=== PATIENT | male | born 1975 | race Caucasian/White ===

== ENCOUNTER 2020-10-11 13:47 | Emergency (ER) | payer OTHER, SELFPAY ==
--- NOTE | ~2020-10-11 | XR_ITS ---
EXAMINATION: XR foot RT min 3V DATE: 10/11/2020 14:14 INDICATION: Blunt trauma to the right foot TECHNIQUE: Dorsoplantar, two oblique and lateral views of the right foot were obtained. COMPARISON: None. FINDINGS: Bone alignment is normal. No fracture. Mild osteoarthritis at the first metatarsophalangeal joint. Penelope int spaces are otherwise relatively preserved. Small Achilles calcaneal spurs. Prominent soft tissue swelling over the dorsum of the forefoot. IMPRESSION: 1. No acute osseous abnormality. Reviewed, dictated and finalized at location A.
[2020-10-11 13:54] VITALS: BP 159/103; PULSE 70; RESP 20; TEMP 36.7; O2SAT 100
--- NOTE | 2020-10-11 14:07 | ED.LOWEXIN ---
HPI - Extremity Injury (Lower) General Chief Complaint: Extremity Injury, Lower Stated Complaint: rt foot inj Source: patient Mode of arrival: ambulatory Limitations: no limitations History of Present Illness HPI Narrative: Patient is a 45 year old male who presents with right foot injury. Patient reports wooden bed frame fell on foot last evening. He reports bruising, swelling and pain with ambulation. Denies numbness or tingling. Denies other injuries. He reports taking otc medications for pain with limited relief. Related Data Home Medications Medication Instructions Recorded Confirmed No Home Medications 10/11/20 10/11/20 Allergies Allergy/AdvReac Type Severity Reaction Status Date / Time Penicillins Allergy Rash Verified 10/11/20 14:30 Review of Systems Review of Systems: Narrative: CONSTITUTIONAL: Denies fever, chills, or sweats. EYES: Denies visual changes, redness, or discharge. ENT: Denies rhinorrhea, congestion, sore throat, or otalgia. CARDIOVASCULAR: Denies chest pain, palpitations, or edema. RESPIRATORY: Denies cough or dyspnea. GASTROINTESTINAL: Denies abdominal pain, nausea, vomiting, or diarrhea. GENITOURINARY: Denies dysuria or hematuria. SKIN: Denies rash or itching. MUSCULOSKELETAL: Right foot pain NEUROLOGIC: Denies headache, numbness, dizziness, or weakness. PSYCHIATRIC: Denies anxiety or depression. [facility] Social History Social History (Updated 10/11/20 @ 14:13 by DEBI Alvarez) Smoking status: Never smoker Alcohol intake: current Alcohol use details: occasional Substance use: never Living arrangements: with family Occupation/Education: occupation Comments At the time of signature, I have reviewed and agree with nursing past medical, surgical, social, and family history unless otherwise noted. Please see nursing chart for further information. There is no relevant family history pertinent to the presenting complaint. Exam Narrative: Exam Narrative: GENERAL: Well-appearing, well-nourished, and in no acute distress. HEAD: Normocephalic, atraumatic. EYES: EOMI. No redness or drainage. Conjunctiva are normal. ENT: Mucous membranes pink and moist. CHEST: No respiratory distress. Clear to auscultation. HEART: Regular rate and rhythm. No murmur appreciated. Normal peripheral pulses. EXTREMITIES: Edema and ecchymosis to dorsal right foot, good capillary refill, distal sensation intact SKIN: Warm, dry, no rash. NEURO: No focal deficits. Alert and oriented x3. Gait steady. PSYCH: Normal affect. No signs of depression or anxiety. Course Vital Signs Vital signs: Vital Signs Temperature 36.7 C 10/11/20 13:54 Pulse Rate 70 10/11/20 13:54 Respiratory Rate 20 10/11/20 13:54 Blood Pressure 159/103 H 10/11/20 13:54 Pulse Oximetry 100 10/11/20 13:54 Temperature 36.7 C 10/11/20 13:54 Pulse Rate 70 10/11/20 13:54 Respiratory Rate 20 10/11/20 13:54 Blood Pressure 159/103 H 10/11/20 13:54 Pulse Oximetry 100 10/11/20 13:54 Reviewed. Patient has been instructed to follow-up with his PCP regarding his blood pressure. MDM - Extremity Injury (Lower) MDM Narrative Medical decision making narrative: X-ray shows no acute osseous abnormality, soft tissue swelling noted. Discussed with patient Tyler wrap, rest, ice, elevation and use of NSAIDs. Tyler wrap applied, postop shoe given the patient at this time. Patient is aware of any red flags such as numbness or tingling in toes or coolness of extremity and the need to go to the emergency department immediately. Patient agrees with plan of care. Patient is stable for discharge to home with outpatient follow-up as discussed. Differential Diagnosis Differential diagnosis: Likely fracture of toe, ankle fracture and other (Fracture foot) Critical Care Time Critical Care Time Critical Care Time: No Discharge Plan Discharge Clinical Impression: Contusion of foot Patient Disposition: Home, Self-C
== END 2020-10-11 14:40 | disposition home or self-care (01) ==
PROVIDERS: Emergency Provider Nurse Practitioner; PCP Internal Medicine
DX: S90.31XA Contusion of right foot, initial encounter (principal); W20.8XXA Other cause of strike by thrown, projected or falling object, initial encounter
CPT/HCPCS: 73630; 99203; G0463